=== PATIENT | female | born 1945 | race Caucasian/White ===

== ENCOUNTER 2016-07-12 11:23 | Outpatient (CLI) | payer MEDICARE | END 2016-07-12 23:59 | disposition home or self-care (01) | LOC: CARD 11:23 | PROVIDERS: ATTEND Internal Medicine Cardiovascular Disease | DX: R09.89 Other specified symptoms and signs involving the circulatory and respiratory systems (principal) | CPT/HCPCS: 93880-TC ==

== ENCOUNTER 2016-09-29 09:19 | Outpatient (CLI) | payer MEDICARE ==
[2016-09-29] MEDS ORDERED: REGADENOSON 0.4 MG/5 ML DISP.SYRIN IVP ONE (10:30)
== END 2016-09-29 23:59 | disposition home or self-care (01) ==
LOC: NM 09:19
PROVIDERS: ATTEND Internal Medicine Cardiovascular Disease
DX: E11.9 Type 2 diabetes mellitus without complications (principal); I10 Essential (primary) hypertension; I25.10 Atherosclerotic heart disease of native coronary artery without angina pectoris; I25.2 Old myocardial infarction; Z95.5 Presence of coronary angioplasty implant and graft
CPT/HCPCS: 78452; A9502; J2785